=== PATIENT | male | born 1960 | race Caucasian/White ===

== ENCOUNTER → 2016-08-01 | Outpatient (CLI) | payer OTHER ==
[2016-08-01 10:51] LABS: PROSTATE SPECIFIC ANTIGEN 1.83 ng/ml (0.000-4.000); THYROID STIMULATING HORMONE 2.12 uIu/ml (0.300-4.500)
== END | disposition home or self-care (01) ==
LOC: C.LAB 09:09
PROVIDERS: ATTEND Internal Medicine
DX: E89.0 Postprocedural hypothyroidism (principal); Z12.5 Encounter for screening for malignant neoplasm of prostate

== ENCOUNTER → 2017-11-11 | Outpatient (CLI) | payer OTHER ==
[2017-11-11 09:41] LABS: BASO % 0.4 %; BASO ABS # 0.02 K/uL (0-0.2); EOS % 1.6 %; EOS ABS # 0.08 K/uL (0-0.5); HEMATOCRIT 40.2 % (42-52); HEMOGLOBIN 13.7 g/dL (14.0-18.0); IG# 0.01 K/uL (0.00-0.02); LYMPH % 37.8 %; MEAN CELL VOLUME 69.9 fL (80-100); MEAN CORPUSCULAR HEMOGLOBIN 23.8 pg (25-34); MEAN CORPUSCULAR HGB CONC 34.1 g/dl (32-36); MEAN PLATELET VOLUME 9.1 fL (7.4-10.4); MONO % 11.1 %; MONO ABS # 0.56 K/uL (0.11-0.59); NEUT % 48.9 %; NEUT ABS # 2.46 K/uL (1.4-6.5); PLATELET COUNT 255 K/uL (130-400); RED CELL DISTRIBUTION WIDTH CV 14.7 % (11.5-14.5); RED CELL DISTRIBUTION WIDTH SD 37.4 fL (36.4-46.3); WHITE BLOOD COUNT 5.03 K/uL (4.8-10.8)
[2017-11-11 09:56] LABS: HEMOGLOBIN A1C 5.6 % (4.5-5.6)
[2017-11-11 10:19] LABS: BLOOD UREA NITROGEN 17 mg/dl (7-18); GLUCOSE 109 mg/dl (70-99)
[2017-11-11 10:20] LABS: ALBUMIN 3.8 gm/dl (3.4-5.0); ALT/SGPT 52 U/L (12-78); AST/SGOT 20 U/L (15-37); CALCIUM 8.9 mg/dl (8.5-10.1); CARBON DIOXIDE 26 mmol/L (21-32); CREATININE 1.21 mg/dl (0.60-1.40); POTASSIUM 4.3 mmol/L (3.5-5.1); SODIUM 137 mmol/L (136-145)
[2017-11-11 10:30] LABS: ALKALINE PHOSPHATASE 119 U/L (45-117); CHOLESTEROL 231 mg/dl (0-200); LDL CHOLESTEROL CALCULATED 145 mg/dl
== END | disposition home or self-care (01) ==
LOC: C.LAB 08:47
PROVIDERS: ATTEND Internal Medicine
DX: R73.01 Impaired fasting glucose (principal); E89.0 Postprocedural hypothyroidism; D56.9 Thalassemia, unspecified; I10 Essential (primary) hypertension; F41.9 Anxiety disorder, unspecified; E78.5 Hyperlipidemia, unspecified; Z12.5 Encounter for screening for malignant neoplasm of prostate